=== PATIENT | female | born 1955 | race Caucasian/White ===

== ENCOUNTER 2021-05-14 16:38 | Emergency (ER) | payer MEDICARE ==
[2021-05-14] MEDS ORDERED: Orphenadrine 100 MG Tab.ER PO STA (18:48)
[2021-05-14] MEDS ORDERED: Ibuprofen 600 MG Tab PO ONE (18:48)
--- NOTE | 2021-05-14 18:54 | EDM.PDOC ---
ED HPI GENERAL MEDICAL PROBLEM - General Chief Complaint: Back Pain or Injury Stated Complaint: BACK PAIN Time Seen by Provider: 05/14/21 18:15 Source of Information: Reports: Patient, Significant Other (Fianc) History Limitations: Reports: Physical Impairment (Patient has poor memory - fianc answered most history questions) - History of Present Illness INITIAL COMMENTS - FREE TEXT/NARRATIVE: Ms. Mccoy is a very pleasant 66-year-old woman with a past medical history significant for a bleeding cerebral aneurysm in 2000, status post coiling, with residual poor memory, who now presents to the ED stating that she developed upper back pain 2 days ago. Her fianc is concerned that she may have fallen while gardening on 05/12/2021, although the patient does not recall doing so, and the patient's fianc acknowledges that he has not seen any bruises or scratches on the patient. No prior similar symptoms. The patient has been using icy hot, and took 1 tablet (200 mg) of ibuprofen on 2 occasions since the onset of her symptoms, which has not significantly helped. Here in the ED, the patient's initial BP is found to be mildly elevated 143/131, otherwise, she is hemodynamically stable, afebrile, saturating 94% on room air. She appears to be comfortable, in no acute distress. Prior to 2 days ago, the patient and her fianc deny that the patient has had a recent fever, chills, sore throat, ear pain, nasal or sinus congestion, cough, dyspnea, chest pain, palpitations, nausea, vomiting, constipation, diarrhea, abdominal pain, urinary symptoms, recent weight gain or weight loss, recent bloody bowel movements or black bowel movements, recent joint aches, headaches, or rashes. The patient does not have a PCP. They are requesting a referral to one. She has not received a COVID vaccination. - Related Data Allergies Allergy/AdvReac Type Severity Reaction Status Date / Time No Known Allergies Allergy Verified 05/14/21 18:54 Home Meds: Home Meds Orphenadrine [Norflex] 1 tab PO Q12H PRN #14 tab.er 05/14/21 [Rx] Past Medical History HEENT History: Reports: Impaired Vision (wears glasses) Cardiovascular History: Reports: High Cholesterol, Hypertension Musculoskeletal History: Reports: Fracture (L5) Neurological History: Reports: Cerebral Aneurysms Psychiatric History: Reports: Anxiety, Depression - Infectious Disease History Infectious Disease History: Reports: Chicken Pox - Past Surgical History Head Surgeries/Procedures: Reports: Other (See Below) (Cerebral aneurism coil 2000) HEENT Surgical History: Reports: Oral Surgery (dental extractions) Female Surgical History: Reports: Hysterectomy (complete) Neurological Surgical History: Reports: Lumbar Spine (fusion) Social & Family History - Tobacco Use Tobacco Use Status *Q: Former Tobacco User Years of Tobacco use: 46 Packs/Tins Daily: 1 Month/Year Tobacco Last Used: Quit 2010 Tobacco Use Comment: Started smoking 1964 - Caffeine Use Caffeine Use: Reports: Soda - Alcohol Use Alcohol Use History: Yes Alcohol Use Frequency: Socially - Recreational Drug Use Recreational Drug Use: Yes Drug Use in Last 12 Months: No Recreational Drug Type: Reports: Marijuana/Hashish (last smoked ) - Living Situation & Occupation Living situation: Reports: , with Significant Other (Fianc) Occupation: Unemployed ED ROS GENERAL - Review of Systems Review Of Systems: Comprehensive ROS is negative, except as noted in HPI. ED EXAM, UPPER BACK/NECK PAIN - Physical Exam Exam: See Below Exam Limited By: No Limitations General Appearance: Alert, WD/WN, No Apparent Distress Neck Exam: Non-Tender, Full Range of Motion, Normal Alignment, Normal Inspection Back Exam: Muscle Spasm (Reproducible tenderness to the bilateral parascapular muscles, worse on the right than the left) Course - Vital Signs Last Recorded V/S: Last Vital Signs Temp 36.7 C 05/14/21 19:00 Pulse 68 05/14/21 19:00 Resp 16 05/14/21 19:00 BP 110/70 05/14/21 19:00 Pulse Ox 98 05/14/21 19:00 - Orders/Labs/Meds Meds: Medications Discontinued Medications Generic Name Dose Route Start Last Admin Trade Name Freq PRN Reason Stop Dose Admin Ibuprofen 600 mg 05/14/21 18:48 05/14/21 18:58 Ibuprofen 600 Mg Tab PO 05/14/21 18:49 600 mg ONETIME ONE Administration Orphenadrine Citrate 100 mg 05/14/21 18:48 05/14/21 18:59 Orphenadrine 100 Mg Tab.Er PO 05/14/21 18:49 100 mg ONETIME STA Administration - Re-Assessments/Exams Free Text/Narrative Re-Assessment/Exam: 05/14/21 18:49 The patient is suffering from bilateral parascapular muscle pain, currently worse on the right than the left. She will be started on Norflex and ibuprofen here in the ED, and I will submit a prescription for Norflex to their pharmacy. She can take [id number] ibuprofen. I will refer her to the clinic to establish a PCP. If her symptoms persist, she may benefit by being referred to physical therapy. Departure - Departure Time of Disposition: 18:50 Disposition: Home, Self-Care 01 Condition: Good Clinical Impression: Muscle strain of upper back - Discharge Information *PRESCRIPTION DRUG MONITORING PROGRAM REVIEWED*: Not Applicable *COPY OF PRESCRIPTION DRUG MONITORING REPORT IN PATIENT AMIE: Not Applicable Prescriptions: Orphenadrine [Norflex] 1 tab PO Q12H PRN #14 tab.er PRN Reason: Muscle Spasm - Painful Instructions: Muscle Strain Referrals: PCP,Not In Area [Primary Care Provider] - Sun Ha NP [Nurse Practitioner] - Forms: ED Department Discharge Additional Instructions: You were seen in the emergency room for pain to your upper back for the past 2 days. Based on your history and physical examination, your suffering from muscle spasms of your parascapular muscles on both sides. You have been started on the muscle relaxant Norflex, and a prescription for Norflex has been sent to the [facility], in [place]. Take 1 tablet of Norflex every 12 hours, starting tomorrow morning, 05/15/2021, as prescribed. Norflex works well with ibuprofen. We recommend that you take 3 tablets (600 mg) of [id number] ibuprofen up to every 8 hours, with food, as needed for discomfort. Stay active. Please follow-up with Sun Ha NP, or one of the other providers in the clinic, to establish a PCP. If your symptoms persist, your PCP may wish to refer you to physical therapy. If any other problems, please do not hesitate to return to the ER. Sepsis Event Note (ED) - Evaluation Sepsis Screening Result: No Definite Risk - Focused Exam Vital Signs: Vital Signs Temp Pulse Resp BP Pulse Ox 05/14/21 19:00 36.7 C 68 16 110/70 98 05/14/21 18:15 37.1 C 95 16 149/131 H 94 L
== END 2021-05-14 19:15 | disposition home or self-care (01) ==
LOC: JD.ED 16:38
DX: S29.012A Strain of muscle and tendon of back wall of thorax, initial encounter (principal); I10 Essential (primary) hypertension; E78.00 Pure hypercholesterolemia, unspecified; Z87.891 Personal history of nicotine dependence; X58.XXXA Exposure to other specified factors, initial encounter
CPT/HCPCS: 99283; A9270

== ENCOUNTER 2021-12-10 07:45 | Day surgery (SDC) | payer MEDICARE ==
[~2021-12-10 07:45] MED LIST: Lactated Ringers 1,000 ML IV SCH; Lidocaine 1%/Sod Bicarbonate in NS 8.4% 1 ML Syringe IDERM PRN; Sodium Chloride 0.9% 10 ML Syringe FLUSH PRN; Sodium Chloride 0.9% 10 ML Syringe FLUSH SCH
[2021-12-10] MEDS ORDERED: Propofol 200 MG/20 ML SDV ONE ×3 (09:41→10:35)
[2021-12-10] MEDS ORDERED: Lidocaine 1% 4 ML ONE (09:50)
== END 2021-12-10 12:28 | disposition home or self-care (01) ==
LOC: JD.SDS 07:45
PROVIDERS: ATTEND Surgery
DX: Z12.11 Encounter for screening for malignant neoplasm of colon (principal); D12.0 Benign neoplasm of cecum; D12.5 Benign neoplasm of sigmoid colon; K62.1 Rectal polyp; K57.30 Diverticulosis of large intestine without perforation or abscess without bleeding; F41.9 Anxiety disorder, unspecified; I10 Essential (primary) hypertension; E78.00 Pure hypercholesterolemia, unspecified; Z91.030 Bee allergy status; Z79.82 Long term (current) use of aspirin; Z79.899 Other long term (current) drug therapy; Z98.890 Other specified postprocedural states
CPT/HCPCS: 45380; 45385; J2704; J7120; 00812